=== PATIENT | male | born 1995 ===

== ENCOUNTER 2025-05-12 17:56 | Emergency (ER) | payer SELFPAY ==
[~2025-05-12] VITALS: Ht 182.9 cm; Wt 113.6 kg
[2025-05-12 18:57] LABS: APPEARANCE,URINE CLEAR (CLEAR); GLUCOSE, URINE (UA) NEGATIVE (NEGATIVE); LEUKOCYTE ESTERASE ,URINE NEGATIVE (NEGATIVE); NITRATE,URINE NEGATIVE (NEGATIVE); OCCULT BLOOD,URINE NEGATIVE (NEGATIVE); PH,URINE DRUG SCREEN 5.5 (5.0-8.0); SPECIFIC GRAVITIY, URINE 1.004 (1.003-1.030)
[2025-05-12 19:02] LABS: PLATELET COUNT (AUTO) 320 K/uL (150-450); RED BLOOD CELL COUNT(AUTO) 4.87 MIL/uL (4.50-5.90); RED CELL DISTRIBUTION WIDTH 15.9 % (11.5-14.5); WHITE BLOOD COUNT (AUTO) 7.9 K/uL (4.5-11.0)
[2025-05-12 19:03] LABS: AMPHET/METH SCREEN,URINE NEGATIVE (NEGATIVE); BARBITURATE SCREEN, URINE NEGATIVE (NEGATIVE); CANNABINOID SCREEN,URINE NEGATIVE (NEGATIVE); COCAINE SCREEN,URINE NEGATIVE (NEGATIVE); METHADONE SCREEN, URINE NEGATIVE (NEGATIVE)
[2025-05-12] MEDS: SODIUM CHLORIDE 0.9% 1,000 ML IV ONE (19:03)
[2025-05-12 19:13] LABS: ALCOHOL, URINE DRUG SCREEN POSITIVE (NEGATIVE)
[2025-05-12 19:15] LABS: CALCIUM, TOTAL 8.4 mg/dL (8.8-10.5); CREATININE 0.69 mg/dL (0.60-1.30); GLOMERULAR FILTR. RATE CALC > 60 mL/min (>60); GLUCOSE,RANDOM 101 mg/dL (70-110); SODIUM SERUM 146 mmol/L (136-145); UREA NITROGEN, BLOOD 5 mg/dL (7-18)
[2025-05-12 19:19] LABS: ASPARTATE AMINOTRANSFERASE 104 U/L (15-37); TOTAL PROTEIN, SERUM 8.6 g/dL (6.4-8.2)
[2025-05-12 19:22] LABS: ALCOHOL, BLOOD (SERUM) 447 mg/dL (0-10); TROPONIN I-HIGH SENSITIVITY 7 ng/L (<76)
[2025-05-12 19:45] LABS: COVID AG,FIA SOURCE NPH
[2025-05-12 20:45] LABS: SARS-COV2 (COVID) ANTIGEN,FIA Negative (Negative)
[2025-05-12 20:54] VITALS: TEMP 98.6
[2025-05-12 20:58] VITALS: BP 128/75; PULSE 105; RESP 19; O2SAT 97
== END 2025-05-12 21:00 | disposition home or self-care (01) ==
LOC: EMS 17:56
DX: F10.129 Alcohol abuse with intoxication, unspecified (principal); Z20.822 Contact with and (suspected) exposure to COVID-19; Y90.8 Blood alcohol level of 240 mg/100 ml or more
CPT/HCPCS: 99284; 96360; 87426; 80053; 84484; 85025; 36415; 93005; 80307; 81003; G0480; J7030; 99285